=== PATIENT | female | born 1945 | race Caucasian/White ===

== ENCOUNTER 2021-08-05 18:50 | Inpatient (IN) | payer MEDICARE ==
[~2021-08-05] VITALS: Ht 152.4 cm; Wt 85.3 kg
[2021-08-05 19:30] VITALS: BP 154/73
[2021-08-05] MEDS ORDERED: ACETAMINOPHEN 325 MG TABLET PO PRN (19:45)
[2021-08-05] MEDS ORDERED: MELATONIN 3 MG TABLET PO PRN (19:45)
[2021-08-05] MEDS ORDERED: ALBUTEROL SULFATE 2.5 MG/0.5 ML NEB SOLUTION NEB PRN (20:00)
[2021-08-05] MEDS ORDERED: IPRATROPIUM BROMIDE 0.5 MG/2.5 ML NEB SOLUTION NEB PRN (20:00)
[2021-08-05] MEDS ORDERED: HydrALAZINE HCL 25 MG TABLET PO PRN (20:00)
[2021-08-05] MEDS: ETHYL ALCOHOL 62% ANTISEPTIC NASAL SANITIZER 0.6 ML AMPUL NASAL SCH (20:53)
[2021-08-05] MEDS: CARVEDILOL 3.125 MG TABLET PO SCH (20:54)
[2021-08-05] MEDS: DOCUSATE SODIUM 100 MG CAPSULE PO SCH (20:54)
[2021-08-05] MEDS: SENNA 187 MG TABLET PO SCH (20:54)
[2021-08-05] MEDS: AmLODIPine BESYLATE 5 MG TABLET PO SCH (20:54)
[2021-08-05] MEDS: ATORVASTATIN CALCIUM 40 MG TABLET PO SCH (20:54)
[2021-08-06] MEDS: NITROGLYCERIN 2% (1 GM=INCH) PACKET TP SCH ×5 (00:12→23:29)
[2021-08-06 01:31] VITALS: BP 142/65
[2021-08-06 06:40] LABS: BASOPHILS % (AUTO) 0.5 % (0.0-2.0); EOSINOPHILS % (AUTO) 4.6 % (1.0-6.0); HEMOGLOBIN 13.9 g/dL (12.0-16.0); LYMPHOCYTES # (AUTO) 2.5 K/uL (1.0-4.8); LYMPHOCYTES % (AUTO) 32.7 % (22.0-44.0); MEAN CORPUSCULAR HEMOGLOBIN 30.2 pg (26.0-34.0); MEAN CORPUSCULAR VOLUME 89 fL (80-100); MONOCYTES # (AUTO) 0.6 K/uL (0.1-1.0); NEUTROPHILS # (AUTO) 4.2 K/uL (1.8-7.7); NEUTROPHILS % (AUTO) 54.2 % (40.0-70.0); PLATELET COUNT (AUTO) 255 K/uL (150-450); RED BLOOD CELL COUNT(AUTO) 4.61 MIL/uL (4.00-5.20); RED CELL DISTRIBUTION WIDTH 14.3 % (11.5-14.5)
[2021-08-06 07:07] LABS: ALANINE AMINOTRANSFERASE 30 U/L (12-78); ALBUMIN 3.3 g/dL (3.4-5.0); ALKALINE PHOSPHATASE 81 U/L (46-116); ANION GAP 8 mmol/L (8-16); ASPARTATE AMINOTRANSFERASE 26 U/L (15-37); BILIRUBIN,TOTAL 0.3 mg/dL (0.1-1.0); CALCIUM, TOTAL 9.2 mg/dL (8.8-10.5); CARBON DIOXIDE 27 mmol/L (22-29); CHLORIDE 109 mmol/L (98-107); CREATININE 0.82 mg/dL (0.60-1.30); GLUCOSE,RANDOM 102 mg/dL (70-110); POTASSIUM 4.4 mmol/L (3.5-5.1); SODIUM SERUM 144 mmol/L (136-145); TOTAL PROTEIN, SERUM 6.8 g/dL (6.4-8.2); UREA NITROGEN, BLOOD 22 mg/dL (7-18)
[2021-08-06 07:08] LABS: GLOMERULAR FILTR. RATE CALC > 60 mL/min (>60)
[2021-08-06] MEDS: ASPIRIN 81 MG CHEWABLE TABLET PO SCH (08:32)
[2021-08-06] MEDS: ETHYL ALCOHOL 62% ANTISEPTIC NASAL SANITIZER 0.6 ML AMPUL NASAL SCH ×2 (08:32→21:07)
[2021-08-06] MEDS: DOCUSATE SODIUM 100 MG CAPSULE PO SCH ×2 (08:33→21:00)
[2021-08-06] MEDS: ENOXAPARIN SODIUM 40 MG/0.4 ML PF SYRINGE SQ SCH (08:36)
[2021-08-06] MEDS: CARVEDILOL 3.125 MG TABLET PO SCH ×2 (08:37→21:08)
[2021-08-06] MEDS: LOSARTAN POTASSIUM 50 MG TABLET PO SCH (08:37)
[2021-08-06] MEDS: NICOTINE 21 MG/24 HOUR PATCH TD SCH (09:00)
[2021-08-06 09:08] VITALS: BP 129/53
[2021-08-06 18:00] VITALS: BP 137/68
[2021-08-06] MEDS: SENNA 187 MG TABLET PO SCH ×2 (21:00→21:08)
[2021-08-06] MEDS: ATORVASTATIN CALCIUM 40 MG TABLET PO SCH (21:08)
[2021-08-06] MEDS: AmLODIPine BESYLATE 5 MG TABLET PO SCH (21:08)
[2021-08-06 21:15] VITALS: BP 145/68
[2021-08-07] VITALS (7 sets, daily range): BP systolic 104–155; BP diastolic 48–81
[2021-08-07 05:31] LABS: APPEARANCE,URINE CLEAR (CLEAR); BILIRUBIN,URINE NEGATIVE (NEGATIVE); GLUCOSE, URINE (UA) NEGATIVE (NEGATIVE); KETONES,URINE NEGATIVE (NEGATIVE); LEUKOCYTE ESTERASE ,URINE NEGATIVE (NEGATIVE); NITRATE,URINE NEGATIVE (NEGATIVE); OCCULT BLOOD,URINE NEGATIVE (NEGATIVE); PROTEIN,URINE NEGATIVE (NEGATIVE); UROBILINOGEN,URINE <=1.0 mg/dL (<=1.0)
[2021-08-07 05:39] LABS: BACTERIA,URINE None Seen /HPF (None Seen); CALCIUM OXALATE CRYSTALS,UR Moderate /LPF (None Seen); RBC,URINE 0-2 /HPF (0-2); SQUAMOUS EPITHELIAL CELL,UR Few /LPF (None Seen); WBC,URINE None Seen /HPF (0-5)
[2021-08-07] MEDS: NITROGLYCERIN 2% (1 GM=INCH) PACKET TP SCH ×4 (06:01→23:00)
[2021-08-07] MEDS: ETHYL ALCOHOL 62% ANTISEPTIC NASAL SANITIZER 0.6 ML AMPUL NASAL SCH ×2 (08:13→20:35)
[2021-08-07] MEDS: ASPIRIN 81 MG CHEWABLE TABLET PO SCH (08:13)
[2021-08-07] MEDS: CARVEDILOL 3.125 MG TABLET PO SCH ×2 (08:14→21:59)
[2021-08-07] MEDS: LOSARTAN POTASSIUM 50 MG TABLET PO SCH (08:14)
[2021-08-07] MEDS: ENOXAPARIN SODIUM 40 MG/0.4 ML PF SYRINGE SQ SCH (08:14)
[2021-08-07] MEDS: DOCUSATE SODIUM 100 MG CAPSULE PO SCH ×2 (08:14→20:36)
[2021-08-07] MEDS: NICOTINE 21 MG/24 HOUR PATCH TD SCH (08:15)
[2021-08-07] MEDS: ATORVASTATIN CALCIUM 40 MG TABLET PO SCH (20:36)
[2021-08-07] MEDS: SENNA 187 MG TABLET PO SCH (20:37)
[2021-08-07] MEDS: AmLODIPine BESYLATE 5 MG TABLET PO SCH (20:39)
[2021-08-08] MEDS: NITROGLYCERIN 2% (1 GM=INCH) PACKET TP SCH ×3 (05:24→17:50)
[2021-08-08 05:27] VITALS: BP 141/59
[2021-08-08 07:35] VITALS: BP 146/62
[2021-08-08] MEDS: CARVEDILOL 3.125 MG TABLET PO SCH ×2 (07:58→20:29)
[2021-08-08] MEDS: ASPIRIN 81 MG CHEWABLE TABLET PO SCH (07:58)
[2021-08-08] MEDS: LOSARTAN POTASSIUM 50 MG TABLET PO SCH (07:58)
[2021-08-08] MEDS: ETHYL ALCOHOL 62% ANTISEPTIC NASAL SANITIZER 0.6 ML AMPUL NASAL SCH ×2 (07:59→20:29)
[2021-08-08] MEDS: ENOXAPARIN SODIUM 40 MG/0.4 ML PF SYRINGE SQ SCH (07:59)
[2021-08-08] MEDS: NICOTINE 21 MG/24 HOUR PATCH TD SCH (07:59)
[2021-08-08] MEDS: DOCUSATE SODIUM 100 MG CAPSULE PO SCH ×2 (07:59→20:30)
[2021-08-08 16:30] VITALS: BP 131/63
[2021-08-08 20:26] VITALS: BP 138/72
[2021-08-08] MEDS: SENNA 187 MG TABLET PO SCH (20:30)
[2021-08-08] MEDS: ATORVASTATIN CALCIUM 40 MG TABLET PO SCH (20:30)
[2021-08-08] MEDS: AmLODIPine BESYLATE 5 MG TABLET PO SCH (20:30)
[2021-08-09] MEDS: NITROGLYCERIN 2% (1 GM=INCH) PACKET TP SCH ×4 (00:02→18:26)
[2021-08-09 00:41] VITALS: BP 136/52
[2021-08-09 02:45] VITALS: BP 158/71
[2021-08-09] MEDS ORDERED: CALCIUM CARBONATE 500 MG CHEWABLE TABLET CHEW PRN (07:15)
[2021-08-09] MEDS: ETHYL ALCOHOL 62% ANTISEPTIC NASAL SANITIZER 0.6 ML AMPUL NASAL SCH ×2 (07:53→20:54)
[2021-08-09] MEDS: CARVEDILOL 3.125 MG TABLET PO SCH ×2 (07:54→20:55)
[2021-08-09] MEDS: ASPIRIN 81 MG CHEWABLE TABLET PO SCH (07:54)
[2021-08-09] MEDS: LOSARTAN POTASSIUM 50 MG TABLET PO SCH (07:54)
[2021-08-09] MEDS: DOCUSATE SODIUM 100 MG CAPSULE PO SCH ×2 (07:55→20:55)
[2021-08-09] MEDS: ENOXAPARIN SODIUM 40 MG/0.4 ML PF SYRINGE SQ SCH (07:55)
[2021-08-09] MEDS: NICOTINE 21 MG/24 HOUR PATCH TD SCH (07:55)
[2021-08-09 08:00] VITALS: BP 145/55
[2021-08-09 16:49] VITALS: BP 129/45
[2021-08-09 18:12] VITALS: BP 144/54
[2021-08-09 20:30] VITALS: BP 150/65
[2021-08-09] MEDS: SENNA 187 MG TABLET PO SCH (20:55)
[2021-08-09] MEDS: AmLODIPine BESYLATE 5 MG TABLET PO SCH (20:55)
[2021-08-09] MEDS: ATORVASTATIN CALCIUM 40 MG TABLET PO SCH (20:55)
[2021-08-10 00:21] VITALS: BP 145/48
[2021-08-10] MEDS: NITROGLYCERIN 2% (1 GM=INCH) PACKET TP SCH ×4 (06:09→17:36)
[2021-08-10] MEDS: DOCUSATE SODIUM 100 MG CAPSULE PO SCH ×2 (07:47→21:00)
[2021-08-10] MEDS: ENOXAPARIN SODIUM 40 MG/0.4 ML PF SYRINGE SQ SCH (07:47)
[2021-08-10] MEDS: CARVEDILOL 3.125 MG TABLET PO SCH ×2 (07:47→21:10)
[2021-08-10] MEDS: LOSARTAN POTASSIUM 50 MG TABLET PO SCH (07:47)
[2021-08-10] MEDS: ASPIRIN 81 MG CHEWABLE TABLET PO SCH (07:47)
[2021-08-10] MEDS: ETHYL ALCOHOL 62% ANTISEPTIC NASAL SANITIZER 0.6 ML AMPUL NASAL SCH ×2 (07:48→21:17)
[2021-08-10] MEDS: NICOTINE 21 MG/24 HOUR PATCH TD SCH (07:49)
[2021-08-10 08:20] VITALS: BP 150/58
[2021-08-10 16:01] VITALS: BP 139/77
[2021-08-10 19:57] VITALS: BP 134/46
[2021-08-10] MEDS: SENNA 187 MG TABLET PO SCH (21:00)
[2021-08-10 21:08] VITALS: BP 147/59
[2021-08-10] MEDS: ATORVASTATIN CALCIUM 40 MG TABLET PO SCH (21:10)
[2021-08-10] MEDS: AmLODIPine BESYLATE 5 MG TABLET PO SCH (21:10)
[2021-08-11] MEDS: NITROGLYCERIN 2% (1 GM=INCH) PACKET TP SCH ×5 (00:08→23:14)
[2021-08-11 00:37] VITALS: BP 131/46
[2021-08-11 08:05] VITALS: BP 146/50
[2021-08-11] MEDS: ETHYL ALCOHOL 62% ANTISEPTIC NASAL SANITIZER 0.6 ML AMPUL NASAL SCH ×2 (08:21→20:47)
[2021-08-11] MEDS: ASPIRIN 81 MG CHEWABLE TABLET PO SCH (08:21)
[2021-08-11] MEDS: CARVEDILOL 3.125 MG TABLET PO SCH ×2 (08:22→20:47)
[2021-08-11] MEDS: LOSARTAN POTASSIUM 50 MG TABLET PO SCH (08:22)
[2021-08-11] MEDS: DOCUSATE SODIUM 100 MG CAPSULE PO SCH (08:22)
[2021-08-11] MEDS: ENOXAPARIN SODIUM 40 MG/0.4 ML PF SYRINGE SQ SCH (08:22)
[2021-08-11] MEDS: NICOTINE 21 MG/24 HOUR PATCH TD SCH (08:23)
[2021-08-11] MEDS ORDERED: DOCUSATE SODIUM 100 MG CAPSULE PO PRN (09:45)
[2021-08-11 16:05] VITALS: BP 128/67
[2021-08-11] MEDS: AmLODIPine BESYLATE 5 MG TABLET PO SCH (20:47)
[2021-08-11] MEDS: ATORVASTATIN CALCIUM 40 MG TABLET PO SCH (20:47)
[2021-08-11 20:50] VITALS: BP 134/64
[2021-08-11 23:10] VITALS: BP 157/78
[2021-08-12] MEDS ORDERED: CARV3 PO (00:27)
[2021-08-12] MEDS ORDERED: ASPI-1450 PO (00:27)
[2021-08-12] MEDS ORDERED: ATOR40TA28 PO (00:27)
[2021-08-12] MEDS ORDERED: AMLO-257 PO (00:27)
[2021-08-12] MEDS ORDERED: LOSA-382 PO (00:27)
[2021-08-12 06:00] VITALS: BP 148/80
[2021-08-12] MEDS: NITROGLYCERIN 2% (1 GM=INCH) PACKET TP SCH ×4 (06:00→23:48)
[2021-08-12] MEDS: ASPIRIN 81 MG CHEWABLE TABLET PO SCH (07:55)
[2021-08-12] MEDS: ETHYL ALCOHOL 62% ANTISEPTIC NASAL SANITIZER 0.6 ML AMPUL NASAL SCH ×2 (07:55→20:01)
[2021-08-12] MEDS: ENOXAPARIN SODIUM 40 MG/0.4 ML PF SYRINGE SQ SCH (07:56)
[2021-08-12] MEDS: NICOTINE 21 MG/24 HOUR PATCH TD SCH (07:56)
[2021-08-12] MEDS: CARVEDILOL 3.125 MG TABLET PO SCH ×2 (07:59→20:04)
[2021-08-12] MEDS: LOSARTAN POTASSIUM 50 MG TABLET PO SCH (07:59)
[2021-08-12 08:01] VITALS: BP 141/70
[2021-08-12 16:00] VITALS: BP 132/70
[2021-08-12 18:32] VITALS: BP 155/55
[2021-08-12] MEDS: ATORVASTATIN CALCIUM 40 MG TABLET PO SCH (20:00)
[2021-08-12] MEDS: AmLODIPine BESYLATE 5 MG TABLET PO SCH (20:01)
[2021-08-13 00:07] VITALS: BP 141/72
[2021-08-13] MEDS: NITROGLYCERIN 2% (1 GM=INCH) PACKET TP SCH ×3 (05:37→17:44)
[2021-08-13] MEDS: ASPIRIN 81 MG CHEWABLE TABLET PO SCH (07:47)
[2021-08-13] MEDS: ETHYL ALCOHOL 62% ANTISEPTIC NASAL SANITIZER 0.6 ML AMPUL NASAL SCH ×2 (07:47→20:57)
[2021-08-13] MEDS: LOSARTAN POTASSIUM 50 MG TABLET PO SCH (07:48)
[2021-08-13] MEDS: NICOTINE 21 MG/24 HOUR PATCH TD SCH (07:48)
[2021-08-13] MEDS: ENOXAPARIN SODIUM 40 MG/0.4 ML PF SYRINGE SQ SCH (07:48)
[2021-08-13 08:01] VITALS: BP 136/100
[2021-08-13 09:45] VITALS: BP 146/49
[2021-08-13] MEDS: CARVEDILOL 3.125 MG TABLET PO SCH ×2 (09:53→20:58)
[2021-08-13 16:29] VITALS: BP 138/61
[2021-08-13 20:49] VITALS: BP 140/60
[2021-08-13] MEDS: ATORVASTATIN CALCIUM 40 MG TABLET PO SCH (20:57)
[2021-08-13] MEDS: AmLODIPine BESYLATE 5 MG TABLET PO SCH (20:57)
[2021-08-14] VITALS: BP 163/52
[2021-08-14 05:30] VITALS: BP 141/62
[2021-08-14] MEDS: NITROGLYCERIN 2% (1 GM=INCH) PACKET TP SCH ×6 (06:00→23:39)
[2021-08-14] MEDS: ETHYL ALCOHOL 62% ANTISEPTIC NASAL SANITIZER 0.6 ML AMPUL NASAL SCH ×2 (08:11→20:27)
[2021-08-14] MEDS: LOSARTAN POTASSIUM 50 MG TABLET PO SCH (08:12)
[2021-08-14] MEDS: ASPIRIN 81 MG CHEWABLE TABLET PO SCH (08:12)
[2021-08-14] MEDS: ENOXAPARIN SODIUM 40 MG/0.4 ML PF SYRINGE SQ SCH (08:12)
[2021-08-14] MEDS: CARVEDILOL 3.125 MG TABLET PO SCH ×2 (08:13→20:27)
[2021-08-14 09:08] VITALS: BP 143/51
[2021-08-14 16:02] VITALS: BP 142/48
[2021-08-14] MEDS: ATORVASTATIN CALCIUM 40 MG TABLET PO SCH (20:27)
[2021-08-14] MEDS: AmLODIPine BESYLATE 10 MG TABLET PO SCH (20:27)
[2021-08-14 20:30] VITALS: BP 140/58
[2021-08-15 00:24] VITALS: BP 129/54
[2021-08-15] MEDS: NITROGLYCERIN 2% (1 GM=INCH) PACKET TP SCH ×3 (05:53→18:41)
[2021-08-15 05:55] VITALS: BP 142/51
[2021-08-15 06:46] LABS: ANION GAP 6 mmol/L (8-16); CALCIUM, TOTAL 9.1 mg/dL (8.8-10.5); CARBON DIOXIDE 30 mmol/L (22-29); CHLORIDE 106 mmol/L (98-107); CREATININE 0.71 mg/dL (0.60-1.30); GLOMERULAR FILTR. RATE CALC > 60 mL/min (>60); GLUCOSE,RANDOM 85 mg/dL (70-110); POTASSIUM 4.5 mmol/L (3.5-5.1); SODIUM SERUM 142 mmol/L (136-145); UREA NITROGEN, BLOOD 20 mg/dL (7-18)
[2021-08-15 07:20] VITALS: BP 116/55
[2021-08-15] MEDS: ETHYL ALCOHOL 62% ANTISEPTIC NASAL SANITIZER 0.6 ML AMPUL NASAL SCH ×2 (08:24→20:31)
[2021-08-15] MEDS: ENOXAPARIN SODIUM 40 MG/0.4 ML PF SYRINGE SQ SCH (08:25)
[2021-08-15] MEDS: ASPIRIN 81 MG CHEWABLE TABLET PO SCH (08:25)
[2021-08-15] MEDS: CARVEDILOL 3.125 MG TABLET PO SCH ×2 (08:26→20:32)
[2021-08-15] MEDS: LOSARTAN POTASSIUM 50 MG TABLET PO SCH (08:26)
[2021-08-15 08:30] VITALS: BP 136/54
[2021-08-15 16:09] VITALS: BP 137/61
[2021-08-15 20:26] VITALS: BP 138/58
[2021-08-15] MEDS: ATORVASTATIN CALCIUM 40 MG TABLET PO SCH (20:32)
[2021-08-15] MEDS: AmLODIPine BESYLATE 10 MG TABLET PO SCH (20:32)
[2021-08-16] MEDS: NITROGLYCERIN 2% (1 GM=INCH) PACKET TP SCH ×4 (00:24→17:40)
[2021-08-16 00:36] VITALS: BP 151/67
[2021-08-16 06:20] VITALS: BP 117/46
[2021-08-16 07:30] VITALS: BP 138/36
[2021-08-16] MEDS: CARVEDILOL 3.125 MG TABLET PO SCH ×3 (08:08→20:14)
[2021-08-16] MEDS: ETHYL ALCOHOL 62% ANTISEPTIC NASAL SANITIZER 0.6 ML AMPUL NASAL SCH ×2 (08:24→20:14)
[2021-08-16] MEDS: ASPIRIN 81 MG CHEWABLE TABLET PO SCH (08:24)
[2021-08-16] MEDS: ENOXAPARIN SODIUM 40 MG/0.4 ML PF SYRINGE SQ SCH (08:26)
[2021-08-16] MEDS: LOSARTAN POTASSIUM 50 MG TABLET PO SCH (08:26)
[2021-08-16 08:30] VITALS: BP 127/43
[2021-08-16 16:17] VITALS: BP 128/61
[2021-08-16 20:12] VITALS: BP 131/67
[2021-08-16] MEDS: AmLODIPine BESYLATE 10 MG TABLET PO SCH (20:14)
[2021-08-16] MEDS: ATORVASTATIN CALCIUM 40 MG TABLET PO SCH (20:14)
[2021-08-17 00:10] VITALS: BP 129/46
[2021-08-17] MEDS: NITROGLYCERIN 2% (1 GM=INCH) PACKET TP SCH ×3 (05:55→12:00)
[2021-08-17 05:56] VITALS: BP 145/48
[2021-08-17 07:30] VITALS: BP 118/48
[2021-08-17 08:30] VITALS: BP 148/55
[2021-08-17] MEDS: ETHYL ALCOHOL 62% ANTISEPTIC NASAL SANITIZER 0.6 ML AMPUL NASAL SCH (08:53)
[2021-08-17] MEDS: ENOXAPARIN SODIUM 40 MG/0.4 ML PF SYRINGE SQ SCH (08:53)
[2021-08-17] MEDS: LOSARTAN POTASSIUM 50 MG TABLET PO SCH (08:53)
[2021-08-17] MEDS: ASPIRIN 81 MG CHEWABLE TABLET PO SCH (08:53)
[2021-08-17] MEDS: CARVEDILOL 3.125 MG TABLET PO SCH (08:53)
[2021-08-17] MEDS ORDERED: ASPI81 PO (11:32)
[2021-08-17] MEDS ORDERED: ATOR40TA71 PO (11:32)
[2021-08-17] MEDS ORDERED: AMLO-258 PO (11:32)
[2021-08-17] MEDS ORDERED: NTP TP (11:33)
[2021-08-17] MEDS ORDERED: LOSA-382 PO (11:33)
[2021-08-17] MEDS ORDERED: CARV3 PO (11:33)
== END 2021-08-17 12:40 | disposition home or self-care (01) | DRG 56 ==
LOC: 2WR 18:50
PROVIDERS: ADMIT Physical Medicine & Rehabilitation; ATTEND Physical Medicine & Rehabilitation
DX: G81.91 Hemiplegia, unspecified affecting right dominant side (principal); I63.9 Cerebral infarction, unspecified; E46 Unspecified protein-calorie malnutrition; I10 Essential (primary) hypertension; E78.5 Hyperlipidemia, unspecified; E66.9 Obesity, unspecified; J44.9 Chronic obstructive pulmonary disease, unspecified; K59.00 Constipation, unspecified; R47.1 Dysarthria and anarthria; Z68.36 Body mass index [BMI] 36.0-36.9, adult; Z79.899 Other long term (current) drug therapy; Z87.891 Personal history of nicotine dependence
CPT/HCPCS: 80048; 80053; 81001; 85025; 87081; 92507; 92523; 97110; 97112; 97116; 97162; 97530; 97535; 99366; J1650